=== PATIENT | male | born 1990 | race Caucasian/White ===

== ENCOUNTER 2017-10-08 10:59 | Emergency (ER) | payer BC ==
[2017-10-08 12:53] LABS: #Basophils 0.1 thou/uL (0.0-0.2); #Eosinphils 0.3 thou/uL (0.0-0.7); #Lymphocytes 1.6 thou/uL (1.20-3.40); #Monocytes 0.6 thou/uL (0.11-0.59); #Neutrophils 4.1 thou/uL (1.40-6.50); %Basophils 0.8 % (0.0-1.0); %Eosinophils 4.1 % (0.0-10.0); %Lymphocytes 24.7 % (21.0-51.0); Hematocrit 47.5 % (42.0-52.0); Mean Platelet Volume 7.6 fL (7.4-10.4); Red Blood Cell (RBC) Count 5.03 mill/uL (4.70-6.10); White Blood Cell (WBC) Count 6.6 thou/uL (4.8-10.8)
[2017-10-08] MEDS ORDERED: Ibuprofen 800 MG TAB ONE (12:54)
[2017-10-08 13:09] LABS: Lactic Acid - Sepsis 1.3 mmol/L (0.5-2.2)
[2017-10-08 13:13] LABS: ALT (SGPT) 34 U/L (8-55); AST (SGOT) 44 U/L (5-34); Alkaline Phosphatase 58 U/L (40-150); Anion Gap 9 mmol/L (10-20); BUN (Urea Nitrogen) 12 mg/dL (8.9-20.6); Bilirubin, Total 0.9 mg/dL (0.2-1.2); Calc. Creatinine Clearance 0 mL/min (70-130); Calcium 9.3 mg/dL (7.8-10.44); Carbon Dioxide 31 mmol/L (22-29); Chloride 107 mmol/L (98-107); Estimated GFR-MDRD 90; Globulin 2.6 g/dL (2.4-3.5); Protein, Total 7.1 g/dL (6.0-8.3)
[2017-10-08] MEDS ORDERED: traMADol HCl 50 MG TAB ONE (13:22)
--- NOTE | 2017-10-08 13:26 | RAD ---
4 VIEWS LEFT HAND: Date: 10/08/17 INDICATION: Left hand pain and swelling. COMPARISON: None. FINDINGS: No acute fracture or subluxation is evident. There is soft tissue swelling in the dorsal aspect of th e left hand. No radiopaque foreign body is evident. IMPRESSION: No acute osseous abnormality demonstrated. POS: [facility]
[2017-10-08] MEDS ORDERED: predniSONE 20 MG TAB ONE (13:53)
== END 2017-10-08 14:06 | disposition home or self-care (01) ==
LOC: ERS 10:59
DX: L03.114 Cellulitis of left upper limb (principal); L50.9 Urticaria, unspecified; F17.220 Nicotine dependence, chewing tobacco, uncomplicated
CPT/HCPCS: 36415; 80053; 83605; 85025; 85652; 86140; J7506

== ENCOUNTER 2018-08-04 21:03 | Emergency (ER) | payer BC ==
[2018-08-04] MEDS ORDERED: Adacel (T-DAP) 0.5 ML VIAL ONE (22:03)
== END 2018-08-04 22:08 | disposition home or self-care (01) ==
LOC: ERS 21:03
DX: T63.301A Toxic effect of unspecified spider venom, accidental (unintentional), initial encounter (principal); L03.115 Cellulitis of right lower limb; F17.220 Nicotine dependence, chewing tobacco, uncomplicated; Z71.6 Tobacco abuse counseling
CPT/HCPCS: 90715

== ENCOUNTER 2018-08-05 13:33 | Inpatient (IN) | payer BC ==
[~2018-08-05 13:33] MED LIST: Dexamethasone 20 MG/5 ML VIAL ONE; Ketorolac Tromethamine 30 MG/ML VIAL ONE; Lidocaine 1% PF 5 ML VIAL ONE; Ondansetron HCl/PF 4 MG/2 ML Vial ONE; PROPOFOL 200 MG/20 ML VIAL ONE
[2018-08-05 14:23] LABS: #Eosinphils 0.1 thou/uL (0.0-0.7); #Lymphocytes 1.3 thou/uL (1.20-3.40); #Monocytes 0.7 thou/uL (0.11-0.59); #Neutrophils 5.7 thou/uL (1.40-6.50); %Basophils 0.3 % (0.0-1.0); %Eosinophils 1.8 % (0.0-10.0); %Lymphocytes 16.5 % (21.0-51.0); %Monocytes 8.4 % (0.0-10.0); %Neutrophils 72.9 % (42.0-75.0); Mean Corpuscular HGB CONC 33.1 g/dL (32.0-36.0); Mean Corpuscular Hemoglobin 30.9 pg (27.0-31.0); Mean Corpuscular Volume 93.4 fL (78.0-98.0); Mean Platelet Volume 8.2 fL (7.4-10.4); Platelet Count 149 thou/uL (130-400); RBC Distribution Width 10.9 % (11.5-14.5); Red Blood Cell (RBC) Count 5.19 mill/uL (4.70-6.10); White Blood Cell (WBC) Count 7.8 thou/uL (4.8-10.8)
[2018-08-05] MEDS ORDERED: Ondansetron HCl/PF 4 MG/2 ML Vial ONE (14:29)
[2018-08-05] MEDS ORDERED: Morphine 4 MG/ML VIAL ONE ×3 (14:29→17:55)
[2018-08-05] MEDS ORDERED: Piperacillin/Tazobactam 4.5 GM VIAL ONE (14:30)
[2018-08-05 14:45] LABS: ALT (SGPT) 55 U/L (8-55); AST (SGOT) 32 U/L (5-34); Albumin 4.8 g/dL (3.5-5.0); Alkaline Phosphatase 59 U/L (40-150); Anion Gap 12 mmol/L (10-20); BUN (Urea Nitrogen) 15 mg/dL (8.9-20.6); Bilirubin, Total 1.1 mg/dL (0.2-1.2); Calc. Creatinine Clearance 0 mL/min (70-130); Calcium 9.4 mg/dL (7.8-10.44); Carbon Dioxide 26 mmol/L (22-29); Chloride 101 mmol/L (98-107); Estimated GFR-MDRD 71; Globulin 2.6 g/dL (2.4-3.5); Glucose 96 mg/dL (70-105); Potassium 4.3 mmol/L (3.5-5.1); Protein, Total 7.4 g/dL (6.0-8.3); Sodium 135 mmol/L (136-145)
[2018-08-05] MEDS ORDERED: Clindamycin/D5W 900 mg/50 ml Premix Bag ONE (16:16)
--- NOTE | 2018-08-05 17:14 | HP ---
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 He presented to emergency room last night, was started on oral antibiotics, returned today when it was progressively worse. Ul trasound obtained bedside revealed increased fluid right thigh. Plan is for incision and drainage of these multiple abscesses. ALLERGIES: None. MEDICATIONS: None. TOBACCO: None. ALCOHOL: Rarely. PAST SURGICAL HISTORY: Appendectomy, tonsillectomy. PAST MEDICAL HISTORY: Noncontributory. REVIEW OF SYSTEMS: Ten point noncontributory. PHYSICAL EXAMINATION: VITAL SIGNS: 120/64, respiratory rate 18. HEAD, EYES, EARS, NOSE, AND THROAT: Unremarkable. LUNGS: Clear to auscultation. CARDIAC: Regular rate and rhythm without murmur or gallop. ABDOMEN: Soft, cellulitis abscess, suprapubic with a small insect bite pustule. MUSCULOSKELETAL: Right thigh has 16-18 cm area of induration, severe redness. Left medial thigh, ar ea of induration, cellulitis proximal calf area of induration, cellulitis. EXTREMITIES: Unremarkable. LABORATORY DATA: White count 7, hemoglobin 16. Comprehensive metabolic profile normal. ASSESSMENT AND PLAN: Severe infection, right thigh, less severe lower abdomen, left thigh. We will plan incision and drainage. He understands risks, benefits, and consents.
[2018-08-05] MEDS ORDERED: Midazolam HCl 2 mg/2 ml Vial ONE ×2 (18:20→19:17)
[2018-08-05] MEDS ORDERED: Fentanyl 100 MCG/2 ML VIAL ONE ×3 (18:20→19:34)
[2018-08-05] MEDS ORDERED: Ondansetron ODT 4 MG TAB PO PRN (18:39)
[2018-08-05] MEDS ORDERED: Ondansetron HCl/PF 4 MG/2 ML Vial IVP PRN ×2 (18:39→19:13)
[2018-08-05] MEDS ORDERED: traMADol HCl 50 MG TAB PO PRN (18:41)
[2018-08-05] MEDS ORDERED: Lidocaine 2% PF Inj 2 ML VIAL ONE ×2 (18:44→18:51)
[2018-08-05] MEDS ORDERED: Bupivacaine/Epinephrine 0.25% 30 ML VIAL ONE (18:44)
[2018-08-05] MEDS ORDERED: Promethazine HCl 25 MG/ML VIAL IM PRN (19:13)
[2018-08-05] MEDS ORDERED: Promethazine HCl 25 MG/ML VIAL SLOW IVP PRN (19:13)
[2018-08-05 20:44] VITALS: BMI 26.5
[2018-08-05] MEDS: cefTRIAXone\\ROCEPHIN 2 GM in Sodium Chloride 0.9% 100 ML IVPB SCH (20:58)
[2018-08-05] MEDS: Enoxaparin Sodium 40 MG/0.4 ML SYRINGE SC SCH (20:58)
[2018-08-05] MEDS: traMADol HCl 50 MG TAB PO PRN (21:08)
[2018-08-06] MEDS: Ibuprofen 600 MG TAB PO PRN ×4 (00:43→20:46)
[2018-08-06] MEDS: Acetaminophen 500 MG TAB PO PRN ×3 (00:43→20:46)
[2018-08-06] MEDS: Vancomycin HCl 1.25 GM in Sodium Chloride 0.9% 250 ML 250 ML IVPB SCH ×2 (03:42→14:37)
[2018-08-06] MEDS: traMADol HCl 50 MG TAB PO PRN ×2 (03:44→09:20)
[2018-08-06] MEDS ORDERED: Morphine 4 MG/ML VIAL ONE ×2 (09:06→09:14)
[2018-08-06] MEDS ORDERED: Sodium Chloride 0.9% 10 ML ONE (09:07)
--- NOTE | 2018-08-06 09:39 | PRG ---
DATE OF SERVICE: 08/06/2018 Mr. Santana is doing well today. His dressings were changed. The wounds look good. Cellulitis is imp roved. At this point, I would continue intravenous antibiotics for another 24 hours and plan dischar ge home tomorrow with wound care. I have instructed him on wound care, normal saline wet to dry dres sings after washing these wounds with soap and water. We will plan discharge home tomorrow on oral a ntibiotics. Hopefully, cultures be available by that time.
[2018-08-06] MEDS ORDERED: Morphine 4 MG/ML VIAL SLOW IVP PRN (10:05)
[2018-08-06] MEDS ORDERED: HYDROcodone/Acetaminophen 7.5/325 mg Tablet PO PRN (11:13)
[2018-08-06] MEDS: HYDROcodone/Acetaminophen 7.5/325 mg Tablet PO PRN ×2 (11:21→23:45)
[2018-08-06] MEDS: cefTRIAXone\\ROCEPHIN 2 GM in Sodium Chloride 0.9% 100 ML IVPB SCH (20:38)
[2018-08-06] MEDS: Enoxaparin Sodium 40 MG/0.4 ML SYRINGE SC SCH (20:39)
[2018-08-07 02:17] LABS: Vancomycin, Trough 6.8 ug/mL
[2018-08-07] MEDS: Vancomycin HCl 1.25 GM in Sodium Chloride 0.9% 250 ML 250 ML IVPB SCH ×2 (04:38→11:22)
[2018-08-07] MEDS: Ibuprofen 600 MG TAB PO PRN (04:48)
[2018-08-07] MEDS: HYDROcodone/Acetaminophen 7.5/325 mg Tablet PO PRN ×2 (05:32→11:22)
[2018-08-07 11:22] VITALS: BP 115/70; TEMP 97.9
--- NOTE | 2018-08-07 16:00 | PRG ---
DATE OF SERVICE: 08/07/2018 SUBJECTIVE: Mr. Santana is doing well today. He feels much better. He is afebrile. No laboratories obtained today. Cultures intraoperatively and blood cultures negative to date. OBJECTIVE: LUNGS: Clear to auscultation. CARDIAC: Regular rate and rhythm without murmur or gallop. ABDOMEN: Soft, nontender. . Wound Care today and look good. Cellulitis, resolved. ASSESSMENT AND PLAN: Doing well. PLAN: Discharged home to resume oral antibiotics prescribed to the emergency room. Wound Care . The patient will follow up in my office in 2-3 weeks.
--- NOTE | 2018-08-07 22:42 | DIS ---
DATE OF ADMISSION: 08/05/2018 DATE OF DISCHARGE: 08/07/2018 DISCHARGE DIAGNOSES: Multiple abscesses left lower quadrant bilateral inner thighs, scrotum, suprapu bis with cellulitis. PROCEDURES THIS HOSPITALIZATION: Incision and drainage of multiple abscesses. Cultures negative to date. To resume home medication prescribed by the emergency room, Bactrim-DS and Keflex. Follow up in my office in 1-2 weeks. DISCHARGE MEDICATIONS: In addition, pain medications, tramadol and hydrocodone 5/325. HISTORY: A 28-year-old male staying at a friend's house, believes he was bitten by insects. He has an abscess over his right knee, right medial thigh, left medial thighs, scrotum, suprapubic. He repo rted to the emergency room, was sent home with Keflex and Bactrim. These progressed overnight became more severe and painful, so he presented in the emergency room. The thigh abscess was much bigger a s were the other thus he was given intravenous antibiotics, taken to the operating room and drainage performed. Cultures are negative to date. Patient discharged home with wound care, normal saline we t to dry dressings after washing with soap and water in the bath or shower and to apply antibiotic oi ntment and Band-Aid when he can no longer packed him. He will followup in my office in about a week.
== END 2018-08-07 15:20 | disposition home or self-care (01) | DRG 580 ==
LOC: ERS 13:33 → SDC/OP 19:14 → SURG B 20:16
PROVIDERS: ADMIT Specialist; ATTEND Specialist
PROC: 0Y9C0ZZ Drainage of Right Upper Leg, Open Approach (ICD-10-PCS; principal; 2018-08-05)
PROC: 0W9F0ZZ Drainage of Abdominal Wall, Open Approach (ICD-10-PCS; 2018-08-05)
DX: L02.415 Cutaneous abscess of right lower limb (principal); L02.211 Cutaneous abscess of abdominal wall; L03.311 Cellulitis of abdominal wall; L03.116 Cellulitis of left lower limb; L03.115 Cellulitis of right lower limb; L02.416 Cutaneous abscess of left lower limb; N49.2 Inflammatory disorders of scrotum
CPT/HCPCS: 36415; 80053; 80202; 83605; 85025; 85652; 86140; 87040; 87070; 87205; 90471; 90686; 90715; 96374; 99406; A4216; G0008; J0131; J0696; J1100; J1650; J1885; J2001; J2250; J2270; J2405; J2543; J2704; J3010; J3370; J3490; J7050

== ENCOUNTER 2018-09-22 01:28 | Emergency (ER) | payer BC | END 2018-09-22 02:00 | disposition home or self-care (01) | LOC: ERS 01:28 | DX: Z02.89 Encounter for other administrative examinations (principal); F17.220 Nicotine dependence, chewing tobacco, uncomplicated | CPT/HCPCS: 99283 ==